=== PATIENT | male | born 2000 | race Caucasian/White ===

== ENCOUNTER → 2020-04-25 | Outpatient (CLI) | payer BC ==
--- NOTE | 2020-04-26 04:42 | MR ---
EXAMINATION TYPE: MR brain wo/w con DATE OF EXAM: 04/25/2020 COMPARISON: None HISTORY: F/U brain tumor. CONTRAST: Standard multiplanar, multisequence MRI departmental protocol utilizing 10 mL intravenous Gadavist ga dolinium contrast. Multiplanar multiecho imaging of the brain was performed without contrast. There is enlargement of the ventricles. There is no midline shift. There is no mass effect. There is no sign of intracranial hemorrhage. The diffusion images show no evidence of cortical infarct. There is no evidence of posterior fossa ma ss. There is thinning of the corpus callosum. Brainstem is intact. Contrast images show no pathologic enhancement. There is normal enhancement of the venous sinuses. IMPRESSION: Mild enlargement of the ventricles. No obstructing lesion seen. No evidence of recurrent tumor. No clark rgical site identified. No old exam available for comparison.
== END | disposition home or self-care (01) ==
LOC: RADMRIMAIN 19:16
PROVIDERS: ATTEND Pediatrics
DX: D49.6 Neoplasm of unspecified behavior of brain (principal)
CPT/HCPCS: 70553; A9585